=== PATIENT | female | born 1955 | race Caucasian/White ===

== ENCOUNTER 2025-05-04 21:55 | Emergency (ER) | payer MEDICARE, SELFPAY ==
[2025-05-04] VITALS (7 sets, daily range): BP systolic 171–196; BP diastolic 96–113; PULSE 86–98; RESP 12–20; TEMP 36.6; O2SAT 93–98; BMI 31.3
--- NOTE | 2025-05-04 21:50 | CT_ITS ---
PROCEDURE INFORMATION: Exam: CTA Neck With Contrast Exam date and time: 05/04/2025 10:07 PM Age: 70 years old Clinical indication: Stroke-like symptoms; Altered mental status/memory loss; Additional info: HTN, AMS TECHNIQUE: Imaging protocol: Computed tomographic angiography of the neck with contrast. Exam focused on the cervical segments of the vasculature. 3D rendering (Not supervised by radiologist): MIP and/or 3D reconstructed images were created by the technologist. Radiation optimization: All CT scans at this facility use at least one of these dose optimization techniques: automated exposure control; mA and/or kV adjustment per patient size (includes targeted exams where dose is matched to clinical indication); or iterative reconstruction. Contrast material: ISOVUE; Contrast volume: 80 ml; Contrast route: INTRAVENOUS (IV); COMPARISON: CT HEAD/BRAIN WO CON 05/04/2025 10:01 PM FINDINGS: Right common carotid artery: No stenosis. No dissection or occlusion. Right internal carotid artery: No stenosis of the extracranial segment. No dissection or occlusion. Right external carotid artery: No occlusion or stenosis of the origin. Left common carotid artery: No stenosis. No dissection or occlusion. Left internal carotid artery: No stenosis of the extracranial segment. No dissection or occlusion. Left external carotid artery: No occlusion or stenosis of the origin. Right vertebral artery: No stenosis. No dissection or occlusion. Left vertebral artery: No stenosis. No dissection or occlusion. Soft tissues: Normal. No significant soft tissue swelling. Bones/joints: Multilevel degenerative disc disease with multilevel disc space narrowing and multilevel moderate to severe facet arthropathy. IMPRESSION: 1. No evidence for occlusion, stenosis or dissection of the cervical vessels. 2. Multilevel degenerative disc disease with multilevel disc space narrowing and multilevel moderate to severe facet arthropathy. REFERENCES: NASCET CRITERIA. The degree of stenosis in the cervical segment of the internal carotid artery is based on NASCET criteria. Normal is no stenosis. Mild is less than 50% stenosis. Moderate is 50-69% stenosis. Severe is 70% to 99% stenosis. Total occlusion is no detectable patent lumen.
--- NOTE | 2025-05-04 21:50 | CT_ITS ---
PROCEDURE INFORMATION: Exam: CTA Head With Contrast, Arteriography Exam date and time: 05/04/2025 10:07 PM Age: 70 years old Clinical indication: Stroke-like symptoms; Altered mental status/memory loss; Additional info: HTN, AMS TECHNIQUE: Imaging protocol: Computed tomographic angiography of the head with contrast. Exam focused on the arteries. 3D rendering (Not supervised by radiologist): MIP and/or 3D reconstructed images were created by the technologist. Radiation optimization: All CT scans at this facility use at least one of these dose optimization techniques: automated exposure control; mA and/or kV adjustment per patient size (includes targeted exams where dose is matched to clinical indication); or iterative reconstruction. Contrast material: ISOVUE; Contrast volume: 80 ml; Contrast route: INTRAVENOUS (IV); COMPARISON: CT HEAD/BRAIN WO CON 05/04/2025 10:01 PM FINDINGS: ANTERIOR CIRCULATION: Right internal carotid artery: Intracranial segment is patent with no significant stenosis. No aneurysm. Right middle cerebral artery: No occlusion or significant stenosis. No aneurysm. Right anterior cerebral artery: No occlusion or significant stenosis. No aneurysm. Left internal carotid artery: Intracranial segment is patent with no significant stenosis. No aneurysm. Left middle cerebral artery: No occlusion or significant stenosis. No aneurysm. Left anterior cerebral artery: No occlusion or significant stenosis. No aneurysm. POSTERIOR CIRCULATION: Right vertebral artery: No occlusion or significant stenosis. No aneurysm. Left vertebral artery: No occlusion or significant stenosis. No aneurysm. Basilar artery: No occlusion or significant stenosis. No aneurysm. Right posterior cerebral artery: No occlusion or significant stenosis. No aneurysm. Left posterior cerebral artery: No occlusion or significant stenosis. No aneurysm. Brain: No evidence for intracranial hemorrhage, mass lesions or acute stroke. Intracranial vascular calcifications of the intracranial vertebral arteries and carotid siphons. Cerebral ventricles: No ventriculomegaly. Bones/joints: Unremarkable. No acute fracture. Soft tissues: Unremarkable. Other findings: No evidence for large vessel occlusion. IMPRESSION: 1. No evidence for large vessel occlusion. 2. No evidence for intracranial hemorrhage, mass lesions or acute stroke. 3. Intracranial vascular calcifications of the intracranial vertebral arteries and carotid siphons.
--- NOTE | 2025-05-04 21:50 | CT_ITS ---
PROCEDURE INFORMATION: Exam: CT Abdomen And Pelvis With Contrast Exam date and time: 05/04/2025 10:10 PM Age: 70 years old Clinical indication: Other: AMS, patient has a history of breast cancer. TECHNIQUE: Imaging protocol: Computed tomography of the abdomen and pelvis with contrast. 3D rendering (Not supervised by radiologist): MIP and/or 3D reconstructed images were created by the technologist. Radiation optimization: All CT scans at this facility use at least one of these dose optimization techniques: automated exposure control; mA and/or kV adjustment per patient size (includes targeted exams where dose is matched to clinical indication); or iterative reconstruction. Contrast material: ISOVUE; Contrast volume: 70 ml; Contrast route: IV; COMPARISON: CT ANGIO CHEST PE PROTOCOL 05/04/2025 10:10 PM FINDINGS: Limitations: There is artifact related to scanning with arms at patient's side. Lungs: Atelectasis is again seen in the lung bases. Liver: The liver is unremarkable. Visualized portal vasculature are patent. Gallbladder and biliary ducts: The gallbladder is unremarkable. No biliary ductal dilatation. Pancreas: Cystic lesion in the pancreatic body measuring 1 cm again present less likely separate type IPMN. Spleen: There granuloma of the spleen. Adrenal glands: The adrenal glands are unremarkable. Kidneys and ureters: There is a subcentimeter cyst in the upper pole of the right kidney. Stomach and bowel: Nonspecific mild fluid distension of the stomach. No bowel obstruction. Scattered noninflamed colonic diverticuli. Appendix: The appendix is normal as seen on coronal image 45. Intraperitoneal space: No free air. No significant ascites. Retroperitoneal space: Visualized retroperitoneal structures grossly negative with no obvious hematoma identified. Vasculature: There is atherosclerosis of the vasculature present. The celiac and SMA are patent. There is stenosis of the origin of the celiac. Visualized IVC patent. Lymph nodes: No pathologic lymphadenopathy identified. Urinary bladder: There is excreted contrast in the bladder. Reproductive: Status post hysterectomy. Bones/joints: There are posterior spinal fusion changes L4-S1 with intact hardware. Soft tissues: There is asymmetric density also present in the outer right breast inferior aspect on series 4, image 5 measuring 2.7 cm. IMPRESSION: 1. No acute findings in the abdomen/pelvis. No definite metastasis seen. 2. There is asymmetric density also present in the outer right breast inferior aspect on series 4, image 5 measuring 2.7 cm. Correlate with mammographic findings given history to assess for possible mass. 3. Cystic lesion in the pancreatic body measuring 1 cm again present again likely a side branch type IPMN. COMMENTS: Consistent with the [employer]'s Incidental Findings Committee white paper ([employer]iol 2018): Any incidental renal lesion less than 1 cm or classified as too small to characterize, or any incidental cystic renal lesion characterized as simple-appearing, is likely benign. No follow-up imaging is recommended for these lesions per consensus recommendations based on imaging criteria.
--- NOTE | 2025-05-04 21:50 | CT_ITS ---
PROCEDURE INFORMATION: Exam: CT Head Without Contrast Exam date and time: 05/04/2025 10:01 PM Age: 70 years old Clinical indication: Stroke-like symptoms; Altered mental status/memory loss; Additional info: HTN, AMS TECHNIQUE: Imaging protocol: Computed tomography of the head without contrast. Radiation optimization: All CT scans at this facility use at least one of these dose optimization techniques: automated exposure control; mA and/or kV adjustment per patient size (includes targeted exams where dose is matched to clinical indication); or iterative reconstruction. Other technique: STROKE PROTOCOL was implemented. COMPARISON: No relevant prior studies available. FINDINGS: Limitations: The study is limited by patient positioning. Brain: No acute infarct. No acute hemorrhage. Unremarkable white matter for age. No midline shift. Cerebral ventricles: No significant ventriculomegaly. Paranasal sinuses: Left-sided frontal sinus opacification without air-fluid level seen. Mastoid air cells: Mastoid air cells are well-aerated. Orbital cavities: Visualized portions of the orbits are unremarkable. Bones: No displaced calvarial fracture identified. Soft tissues: Soft tissues are unremarkable as visualized. IMPRESSION: No acute intracranial abnormality. ASSESSMENT: ASPECTS ([place] Stroke Program Early CT Score) is 10.
--- NOTE | 2025-05-04 21:50 | CT_ITS ---
PROCEDURE INFORMATION: Exam: CTA Chest With Contrast Exam date and time: 05/04/2025 10:10 PM Age: 70 years old Clinical indication: Other: AMS. History of breast cancer. TECHNIQUE: Imaging protocol: Computed tomographic angiography of the chest with contrast. Exam focused on the arteries. 3D rendering (Not supervised by radiologist): MIP and/or 3D reconstructed images were created by the technologist. Radiation optimization: All CT scans at this facility use at least one of these dose optimization techniques: automated exposure control; mA and/or kV adjustment per patient size (includes targeted exams where dose is matched to clinical indication); or iterative reconstruction. Contrast material: ISOVUE; Contrast volume: 70 ml; Contrast route: INTRAVENOUS (IV); COMPARISON: CT ANGIO NECK 05/04/2025 10:07 PM FINDINGS: Limitations: The study is motion degraded. Tubes, catheters and devices: There is a right chest MediPort with its tip near the superior cavoatrial junction. Pulmonary arteries: There is no central PE. Beyond this level the study is severely technically limited. No definite peripheral PE is seen. Aorta: There is atherosclerosis of the aorta with normal caliber. Thyroid: Normal visualized thyroid gland. Trachea: Centrally the trachea is patent. Lungs: There is minimal dependent atelectasis present in the lungs bilaterally. No focal pneumonia. No definite pulmonary mass seen. Pleural spaces: No pneumothorax. No pleural effusion. Heart: There are heavy mitral annulus calcifications present. The heart size is normal. No significant pericardial effusion. Lymph nodes: There is a calcified subcarinal and left hilar node present consistent with old granulomatous disease. There are subcentimeter nodes in the mediastinum and annie. No pathologic axillary lymphadenopathy. No significant internal mammary nodes. Pancreas: There is a cystic lesion in the body of the pancreas measuring 1 cm most likely a side branch type IPMN. Bones/joints: No definite displaced fracture seen. Soft tissues: There is an asymmetric density in the outer left breast measuring 1.2 cm which may be the patient's mass given history. IMPRESSION: 1. No definite central pulmonary embolus seen. Technically limited study. There is minimal atelectasis in the dependent lower lobes bilaterally. 2. There is an asymmetric density in the outer left breast measuring 1.2 cm which may be the patient's mass given history. Correlate with mammographic findings. 3. There is a cystic lesion in the body of the pancreas measuring 1 cm most likely a side branch type IPMN. No acute findings seen in the visualized upper abdominal structures. 4. The study is motion degraded.
--- NOTE | 2025-05-04 21:57 | HMH.EDGENADL ---
Discharge Plan Disposition Chief Complaint: Altered Mental Status Stand Alone Forms Stand Alone Forms: Transfer Record - ED Instructions Patient Instructions: DI for Altered Mental Status Print Language Print Language: Iranian Discharge ED Provider: Zena Resendiz General Adult HPI General Chief complaint: Altered Mental Status Stated complaint: Altered mental Time Seen by Provider: 05/04/25 21:57 History of Present Illness HPI narrative: Patient is a 70-year-old female with unknown past medical history who presented to the emergency department from home with acute altered mental status. Per EMS, patient's last known normal was 8 PM and patient became acutely altered and started talking like she was intoxicated. Per EMS, patient was a GCS of 3 on their arrival, patient was unresponsive. Patient was given 2 mg of IV Narcan with some improvement. They state that patient does have oxycodone listed in her medications but unsure if this is a chronic medicine. Patient was given no other medications and route. Patient was hypertensive initial blood pressure 190 systolic. Per EMS, there was no known trauma. No other known medications or medical problems were known. Further history obtained from on arrival: states that patient's last known normal was 8 PM. He states that he came inside and patient was speaking but was not making sense and then she went nonverbal. He states that patient remained this way and then about 20 minutes later she had an episode where she had upper and lower extremity shaking that lasted for a few minutes. He states that she continued to be altered afterwards. He states that her eyes were open during the episode. But she was staring in the distance. He states that patient does not have a history of seizures. He states that patient is currently on a daily aspirin but no other blood thinners. 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 He states that she saw her primary care provider yesterday was started on a new blood pressure medication. He states that her blood pressure typically runs around 140 systolic at home. He states that patient has otherwise not been sick. Patient has not had any fevers chills or upper respiratory symptoms. Patient has not had any recent vomiting diarrhea. Patient was otherwise at her baseline prior to this. He states that patient has been previously prescribed oxycodone for her back surgeries that were more than 6 months ago but she does not take this daily. He states that she has not had any recent trauma or falls. Patient has no history of GI bleed or intracranial hemorrhage. Related Data Allergies Allergy/AdvReac Type Severity Reaction Status Date / Time Unable to Assess Allergy Verified 05/04/25 22:03 [facility] Disclaimer: The information contained in this section may have been updated after the patient was seen, as this information can be updated by other users. Social History Smoking Status: Never smoker alcohol intake: never current occupational status: other Travel in the last 8 weeks?: None ROS Obtained: Yes All systems reviewed & no additional complaints except as documented and Yes Systems reviewed as appropriate & no additional complaints except as documented Physical Exam General General appearance: alert Head Head exam: atraumatic Eye Eye exam: Present normal appearance and PERRL (2 mm reactive bilaterally); Absent scleral icterus, conjunctival redness or jaundice Chest Chest inspection: Present normal inspection and symmetric chest wall rise Respiratory Respiratory exam: Present normal lung sounds bilaterally and other (Port in R chest); Absent respiratory distress or wheezes Cardiovascular Cardiovascular exam: Present regular rate, normal rhythm and normal heart sounds Abdominal Exam Abdominal exam: Present soft; Absent distention Extremities Exam Extremities exam: Present normal inspection and other (no evidence of bruising) Neurological Exam Neurological exam: Present alert and other (GCS 10 (3,2,5), unable to follow commands, NIH 20) Skin Skin exam: Present warm Medical Decision Making Medical Records Medical records reviewed: Yes I reviewed the patient's medical records. Screening: Per USPSTF and CDC recommendations, given the prevalence of disease in our region, it is our hospital?s policy to screen for HIV and viral Hepatitis for all patients aged 18 and over and those with ongoing risk factors. [place] Inquiry Pt receiving controlled substance: No Vital Signs: 05/04/25 21:48 05/04/25 22:25 05/04/25 22:30 Temperature 97.9 F Temperature Source Axillary Pulse Rate 95 H 94 H Pulse Rate [Radial] 98 H Respiratory Rate 14 18 13 Blood Pressure 190/102 H 189/107 H Blood Pressure [Right Arm] 193/103 H Blood Pressure Mean [Right Arm] 133 Blood Pressure Position [Right Arm] Supine 02 Sat by Pulse Oximetry 93 L 95 96 Oxygen Delivery Method Room Air Nasal Cannula Nasal Cannula Oxygen Flow Rate (LPM) 2 2 05/04/25 22:56 05/04/25 23:05 05/04/25 23:10 Temperature Temperature Source Pulse Rate 86 Pulse Rate [Radial] Respiratory Rate 16 12 Blood Pressure 193/110 H 196/113 H 171/96 H Blood Pressure [Right Arm] Blood Pressure Mean [Right Arm] Blood Pressure Position [Right Arm] 02 Sat by Pulse Oximetry 97 Oxygen Delivery Method Nasal Cannula Oxygen Flow Rate (LPM) 2 05/04/25 23:30 Temperature Temperature Source Pulse Rate 86 Pulse Rate [Radial] Respiratory Rate 20 Blood Pressure 174/103 H Blood Pressure [Right Arm] Blood Pressure Mean [Right Arm] Blood Pressure Position [Right Arm] 02 Sat by Pulse Oximetry 98 Oxygen Delivery Method Nasal Cannula Oxygen Flow Rate (LPM) 2 Lab Data Lab results reviewed: Yes I reviewed the patient's lab results. Lab Results 05/04/25 22:19: WBC 10.1, RBC 4.42, Hgb 13.6, Hct 40.6, MCV 91.9, MCH 30.8, MCHC 33.5, RDW 12.5, Plt Count 196, MPV 9.9, Neut % (Auto) 82.2 H, Lymph % (Auto) 11.4, Cherry % (Auto) 4.2, Eos % (Auto) 0.3, Baso % (Auto) 0.3, Neut # (Auto) 8.3 H, Lymph # (Auto) 1.2, Cherry # (Auto) 0.4, Eos # (Auto) 0.0, Baso # (Auto) 0.0, VBG pH 7.24 L, VBG pCO2 51.7 H, VBG pO2 66.4 H, VBG HCO3 21.9 L, VBG Total CO2 23.4, VBG O2 Saturation 89.0 H, VBG Base Excess -5.5 L, VBG Lactic Acid 2.8 H, Sodium 130 L, Potassium 3.8, Chloride 99, Carbon Dioxide 25, Anion Gap 9.8, BUN 14, Creatinine 0.90, Estimated Creat Clear 71, Estimated GFR 62, Est GFR ( Amer) 74, Glucose 227 H, Calcium 8.1 L, Phosphorus 3.8, Magnesium 1.8, Total Bilirubin 0.4, AST 24, ALT 17, Alkaline Phosphatase 122, Troponin I < 0.01, Total Protein 6.2 L, Albumin 2.7 L, Globulin 3.5 H, Albumin/Globulin Ratio 0.8 L, TSH 1.36, Free T4 1.26, Salicylates < 1.0 L, Acetaminophen < 10 L, Plasma/Serum Alcohol < 10 05/04/25 22:30: Urine Color Yellow, Urine Appearance Clear, Urine pH 5.5, Ur Specific [place] 1.015, Urine Protein Negative, Urine Glucose (UA) Trace, Urine Ketones Negative, Urine Blood 1+ A, Urine Nitrate Negative, Urine Bilirubin Negative, Urine Urobilinogen 1.0, Ur Leukocyte Esterase Negative, Urine RBC Occasional, Urine WBC None, Ur Squamous Epith Cells None, Urine Bacteria None 05/04/25 22:31: Urine Opiates Screen Negative, Urine Methadone Screen Negative, Ur Barbituates Screen Negative, Ur Phencyclidine Scrn Negative, Ur Amphetamines Screen Negative, U Benzodiazepines Scrn Negative, Urine Cocaine Screen Negative, U Marijuana (THC) Screen Negative 05/04/25 22:19 05/04/25 22:19 Orders (Tests/Meds): ED MEDICATIONS Discontinued Medications Generic Name Dose Route Start Last Admin Trade Name Freq PRN Reason Stop Dose Admin Levetiracetam 2,000 mg/ Sodium 120 mls @ 240 mls/hr 05/04/25 22:47 05/04/25 23:36 Chloride IV 05/04/25 22:48 Infused ONCE ONE Infusion Iopamidol 150 ml 05/04/25 22:13 05/04/25 22:14 Iopamidol-370 (76%);100ml Bottle IV 05/04/25 22:14 150 ml ONCE ONE Administration Labetalol HCl 10 mg 05/04/25 23:00 05/04/25 23:05 Labetalol 5mg/Ml 20ml Mdv IV 05/04/25 23:01 10 mg ONCE ONE Administration Sodium Chloride 100 ml 05/04/25 22:13 05/04/25 22:14 0.9 % Sodium Chloride 50 Ml Vial IV 05/04/25 22:14 100 ml ONCE ONE Administration Sodium Chloride 10 ml 05/04/25 22:13 05/04/25 22:14 Sodium Chloride 0.9% 10ml Syr (Rad Only) IV 05/04/25 22:14 10 ml ONCE ONE Administration ORDERS Category Date Time Status CT abdomen pelvis w con Stat Cat Scan 05/04/25 21:[address] angio chest PE protocol Stat Cat Scan 05/04/25 21:[address] angio head Stat Cat Scan 05/04/25 21:[address] angio neck Stat Cat Scan 05/04/25 21:[address] head/brain wo con Stat Cat Scan 05/04/25 21:50 Completed Acetaminophen Stat Lab 05/04/25 22:19 Completed CBC w/Auto Diff [Complete Blood Count Auto Diff] Stat Lab 05/04/25 22:19 Completed CMP [Comprehensive Metabolic Panel] Stat Lab 05/04/25 22:19 Completed Drug Screen,Urine Stat Lab 05/04/25 22:31 Completed Ethyl Alcohol Stat Lab 05/04/25 22:19 Completed Free T4 (Free Thyroxine) Stat Lab 05/04/25 22:19 Completed MAG [Magnesium] Stat Lab 05/04/25 22:19 Completed PHOS [Phosphorous] Stat Lab 05/04/25 22:19 Completed Salicylate Stat Lab 05/04/25 22:19 Completed TSH [Thyroid Stimulating Hormone] Stat Lab 05/04/25 22:19 Completed Trop I [Troponin I] Stat Lab 05/04/25 22:19 Completed Troponin I Q3H Lab 05/05/25 01:00 Ordered Troponin I Q3H Lab 05/05/25 04:00 Ordered UA [Urinalysis and Microscopic] Stat Lab 05/04/25 22:30 Completed VBG [Venous Blood Gas] Stat RT 05/04/25 22:19 Completed Medical Decision Narrative: Patient is a 70-year-old female with unknown past medical history who presented to the emergency department from home with acute altered mental status. On arrival, patient was hypertensive but hemodynamically stable. Patient was a GCS of 10, 3-5. Patient was unable to provide any history. Per EMS, patient became altered at home was talking like she was intoxicated. On arrival by EMS, patient was unconscious GCS of 3 patient was given 2 of IV Narcan with some improvement. Patient was given no other medications en route. Differential includes but not limited to: Intracranial pathology, intracranial mass, intracranial hemorrhage, seizure, electrolyte abnormalities, hypoglycemia, intoxication, polysubstance use, pneumonia, UTI, amongst others. Patient's labs were reviewed and interpreted by myself: CBC showed no leukocytosis, hemoglobin was stable. VBG showed mild acidosis of 7.24, with a lactate of 2.8. CMP was notable for mild hyponatremia of 130 glucose was 227. Troponin was less than 0.01. UA showed no evidence of infection. Tylenol level normal, aspirin level normal. Urine drug screen navigated. Alcohol level normal. EKG was reviewed and interpreted by myself and showed normal sinus rhythm without acute ST or T wave changes concerning for ischemia CT head, CTA head and neck as well as CT chest and CT abdomen were obtained which showed no acute intracranial pathology no large intracranial hemorrhage no large vessel occlusion. CT chest and CT abdomen were otherwise unremarkable. On arrival, patient had a significant NIH given the patient was nonverbal unable to follow commands NIH was 20. Given further history by I had concern for a seizure like episode therefore patient was given 2 g of Keppra. Patient was hypertensive to 190 systolic therefore she was given 10 of labetalol. Given concern for TIA and possible new seizure, I discussed the case with the stroke navigator at [facility] in [place]. I felt the patient would benefit from an MRI for further neurology workup. Which he agreed. At this time I feel like patient is likely postictal. Patient has been afebrile low concern for meningitis/encephalitis at this time given slow improvement in cognition at this time and slow return to baseline. Patient is otherwise protecting her airway, currently a GCS of 11. No acute airway intervention was required. Patient was accepted to [facility] for further stroke workup. Patient will be sent by ALS in stable condition. Critical Care Critical Care Time Critical Care Time: Yes Attestation: On 05/04/25, the high probability of a clinically significant, sudden or life threatening deterioration of the following system(s) required my full and direct attention, intervention and personal management. The time I documented below is in addition to time spent performing reported procedures but includes the following listed in this critical care notation. Total Time Total Critical Care Time: 35
[2025-05-04] MEDS: SODIUM CHLORIDE 0.9% 10ML SYR (RAD ONLY) 10 ML IV (22:14)
[2025-05-04] MEDS: IOPAMIDOL-370 (76%);100ML BOTTLE 150 ML IV (22:14)
[2025-05-04] MEDS: 0.9 % SODIUM CHLORIDE 50 ML VIAL 100 ML IV (22:14)
[2025-05-04 22:28] LABS: Hematocrit 40.6 % (37.0-47.0); Hemoglobin 13.6 g/dL (12.2-16.2); Immature Granulocytes % 1.6 %; Mean Corpuscular HGB Conc 33.5 g/dL (31.8-35.4); Mean Corpuscular Hemoglobin 30.8 pg (27.0-31.2); Mean Corpuscular Volume 91.9 fl (81-99); Nucleated Red Blood Cells % 0 %; Platelet Count 196 K/mm3 (142-424); Red Blood Count 4.42 M/mm3 (4.20-5.40); Red Cell Distribution Width-SD 42.4 fL; White Blood Count 10.1 K/mm3 (4.8-10.8)
[2025-05-04 22:33] LABS: VBG HCO3 21.9 mmol/L (23-30); VBG PH 7.24 mmol/L (7.31-7.41); VBG PO2 66.4 mmol/L (28-40)
[2025-05-04 22:34] LABS: Microscopic, Urine URINE MICROSCOPIC (MICROSCOPIC)
[2025-05-04 22:36] LABS: Bilirubin,Urine Negative (Negative); Color,Urine YELLOW (Yellow); Glucose,Urine (UA) TRACE (Negative); Ketones,Urine Negative (Negative); Leukocyte Esterase,Urine Negative (Negative); PH,Urine 5.5 (5.0-8.5); Protein,Urine Negative (Negative); Specific Gravity, Urine 1.015 (1.005-1.030); Urobilinogen,Urine 1.0 EU/dl (0.2)
[2025-05-04 22:36] LABS: Lactate Venous 2.8 mmol/L (0.4-2.0); VBG PCO2 51.7 mmol/L (35-51)
[2025-05-04 22:40] LABS: Albumin Level 2.7 g/dl (3.5-5.0); Chloride 99 mmol/L (98-107); Potassium 3.8 mmoL/L (3.5-5.1); Sodium 130 mmol/L (136-145)
[2025-05-04 22:43] LABS: Alanine Aminotransferase 17 U/L (12-78); Albumin/Globulin Ratio 0.8 (1.1-1.8); Alkaline Phosphatase 122 U/L (38-126); Anion Gap 9.8 mEq/L (5-15); Aspartate Amino Transferase 24 U/L (14-36); Bilirubin,Total 0.4 mg/dl (0.2-1.3); Blood Urea Nitrogen 14 mg/dl (7-17); Calcium 8.1 mg/dl (8.4-10.2); Carbon Dioxide 25 mmol/L (22.0-30.0); Creatinine Clearance Estimated 71 mL/min (50-200); Creatinine,Serum 0.90 mg/dl (0.52-1.04); Estimated Glomerular Filt Rate 62 ml/min (>60); GFR (African American) 74 ML/MIN (>60); Globulin 3.5 g/dL (1.3-3.2); Glucose 227 mg/dl (74-100); Phosphorous 3.8 mg/dl (2.5-4.5); Total Protein,Serum 6.2 g/dl (6.3-8.2)
[2025-05-04 22:44] LABS: Magnesium 1.8 mg/dl (1.6-2.3)
[2025-05-04 22:46] LABS: RBC,Urine Occasional #/hpf (0-3)
[2025-05-04 22:46] LABS: Acetaminophen < 10 ug/ml (10-30); Salicylate < 1.0 mg/dL (2.0-20.0)
--- NOTE | 2025-05-04 22:48 | PC.NURSE ---
family now at the bedside, ED provider at the bedside as well updating on POC and obtaining more information.
[2025-05-04 22:49] LABS: Amphetamine/Metha Screen,Urine Negative ng/ml (<1000); Benzodiazepines Screen,Urine Negative ng/ml (<200)
[2025-05-04 22:50] LABS: Barbiturates Screen,Urine Negative ng/ml (<200)
--- NOTE | 2025-05-04 22:51 | ECG_ITS ---
APPROVED REPORT Exam: Resting ECG HR:98 bpm ECG Measurements Heart Rate 98 AXES ND 157 P 50 QRSd 88 QRS 62 QT 348 T 22 QTc 403 Conclusion Normal sinus rhythm without acute ST or T wave changes concerning for ischemia Electronically signed by : Zena Resendiz, 05/05/2025 00:42:11
[2025-05-04 22:52] LABS: Methadone Screen,Urine Negative ng/ml (<300)
[2025-05-04 22:53] LABS: Opiate Screen,Urine Negative ng/ml (<300); Phencyclidine Screen,Urine Negative ng/ml (<25)
[2025-05-04] MEDS: levETIRAcetam 2,000 MG in 0.9 % SODIUM CHLORIDE 100 ML 240 MG IV (23:00)
[2025-05-04] MEDS: LABETALOL 5MG/ML 20ML MDV 10 MG IV (23:05)
[2025-05-04 23:06] LABS: Free T4 (Free Thyroxine) 1.26 ng/dl (0.78-2.19)
--- NOTE | 2025-05-04 23:06 | PC.NURSE ---
Called [facility] for MD Resendiz to get in touch with stroke navigator
[2025-05-04 23:07] LABS: Troponin I < 0.01 ng/ml (0.00-0.034)
[2025-05-04 23:21] LABS: Thyroid Stimulating Hormone 1.36 uIU/mL (0.465-4.68)
--- NOTE | 2025-05-05 00:08 | PC.NURSE ---
Attempting to call report to [facility] requesting this RN to call back in 10 mins so RN taking report can take it.
--- NOTE | 2025-05-05 00:26 | PC.NURSE ---
Report given to Shirley VIVAR at [facility]
[2025-05-05 01:10] VITALS: BP 174/103; PULSE 86; RESP 16; TEMP 36.6; O2SAT 98
[2025-05-05 02:34] LABS: Reflex Lactic Add Lactic Reflex
== END 2025-05-05 01:13 | disposition short-term general hospital (02) ==
PROVIDERS: Emergency Provider Student in an Organized Health Care Education/Training Program
DX: G45.9 Transient cerebral ischemic attack, unspecified (principal); R29.720 NIHSS score 20; R40.2422 Glasgow coma scale score 9-12, at arrival to emergency department; E87.29 Other acidosis; R74.02 Elevation of levels of lactic acid dehydrogenase [LDH]; E87.1 Hypo-osmolality and hyponatremia
CPT/HCPCS: 51702; 70450; 70496; 70498; 71275; 74177; 80053; 80307; 80320; 80329; 81001; 82803; 83735; 84100; 84439; 84443; 84484; 85025; 93005; 96374; 96375; 99285; J1920; J1953; Q9967